=== PATIENT | female | born 1990 | race Asian ===

== ENCOUNTER 2018-04-01 12:51 | Emergency (ER) | payer OTHER ==
--- NOTE | 2018-04-01 13:49 | EDPHY ---
H & P Time Seen by Provider: 04/01/18 13:39 HPI/ROS: CHIEF COMPLAINT: Vaginal bleeding HISTORY OF PRESENT ILLNESS: Patient is a 28-year-old female G1 para 0 last menstrual period on 02/26/2018 presents emergency department vaginal bleeding. The patient took a home test a couple of weeks ago and it was positive. She has not yet seen a doctor. This morning she had a small amount of vaginal bleeding. This is only a few mL. She has had no abdominal cramping or pain. No fevers or chills. No dysuria or frequency. REVIEW OF SYSTEMS: 10 systems were reveiwed and are negative with the exception of the elements mentioned in the history of present illness. Past Medical/Surgical History: Negative Past surgical history: Negative Social history: The patient does not smoke. Smoking Status: Never smoked Physical Exam: Vitals noted GENERAL: Well-appearing, in no acute distress, alert. HEENT: Eyes normal to inspection. NECK: Normal, supple. RESPIRATORY: Clear to auscultation bilaterally, no rales, rhonchi or wheezing. CVS: Regular rate and rhythm, no rubs, murmurs, or gallops. ABDOMEN: Soft, nontender, nondistended, no organomegaly. BACK: Normal to inspection, no CVA tenderness. SKIN: Normal color, no rash, warm, dry. No pallor. EXTREMITIES: No pedal edema, no calf tenderness, no Homans sign or cords, no joint swelling. NEURO/PSYCH: Alert and oriented, normal mood and affect, normal motor sensory exam. Constitutional: Initial Vital Signs Temperature (C) 36.5 C 04/01/18 13:14 Heart Rate 88 04/01/18 13:14 Respiratory Rate 18 04/01/18 13:14 Blood Pressure 91/53 L 04/01/18 13:14 O2 Sat (%) 98 04/01/18 13:14 O2 Delivery Mode Room Air Allergies/Adverse Reactions: No Known Allergies Allergy (Unverified 04/01/18 13:56) Home Medications: Medication Instructions Recorded NK [No Known Home Meds] 04/01/18 Medical Decision Making ED Course/Re-evaluation: In the emergency department I discussed possible etiologies with the patient. I answered all her questions. IV was placed. Laboratory studies were obtained. An ultrasound was ordered. The ultrasound: Please refer the dictated report by Dr. Doan. There was what appears to be an IUP. No extra ureteral findings. Patient beta quant was 3700. Her Rh type positive. I discussed the case with Dr. Kemp. She will see the patient in clinic for further follow-up and treatment. I discussed the plan in the need for close follow-up with the patient. They will call 1st thing tomorrow morning. They are given warnings prior to leaving. Differential Diagnosis: My differential includes but is not limited to , ectopic , miscarriage, urinary tract infection, STD, PID - Data Points Laboratory Results: Laboratory Results 04/01/18 13:52 04/01/18 13:52 04/01/18 04/01/18 04/01/18 13:52 13:52 13:52 WBC 4.52 10^3/uL 10^3/uL (3.80-9.50) RBC 4.14 10^6/uL L 10^6/uL (4.18-5.33) Hgb 12.1 g/dL L g/dL (12.6-16.3) Hct 35.5 % L % (38.0-47.0) MCV 85.7 fL fL (81.5-99.8) MCH 29.2 pg pg (27.9-34.1) MCHC 34.1 g/dL g/dL (32.4-36.7) RDW 12.6 % % (11.5-15.2) Plt Count 216 10^3/uL 10^3/uL (150-400) MPV 9.7 fL fL (8.7-11.7) Neut % (Auto) 61.3 % % (39.3-74.2) Lymph % (Auto) 31.2 % % (15.0-45.0) Williamson % (Auto) 5.3 % % (4.5-13.0) Eos % (Auto) 1.1 % % (0.6-7.6) Baso % (Auto) 0.9 % % (0.3-1.7) Nucleat RBC Rel Count 0.0 % % (0.0-0.2) Absolute Neuts (auto) 2.77 10^3/uL 10^3/uL (1.70-6.50) Absolute Lymphs (auto) 1.41 10^3/uL 10^3/uL (1.00-3.00) Absolute Monos (auto) 0.24 10^3/uL L 10^3/uL (0.30-0.80) Absolute Eos (auto) 0.05 10^3/uL 10^3/uL (0.03-0.40) Absolute Basos (auto) 0.04 10^3/uL 10^3/uL (0.02-0.10) Absolute Nucleated RBC 0.00 10^3/uL 10^3/uL (0-0.01) Immature Gran % 0.2 % % (0.0-1.1) Immature Gran # 0.01 10^3/uL 10^3/uL (0.00-0.10) Sodium 136 mEq/L mEq/L (135-145) Potassium 4.5 mEq/L mEq/L (3.5-5.2) Chloride 106 mEq/L mEq/L (97-110) Carbon Dioxide 23 mEq/l mEq/l (22-31) Anion Gap 7 mEq/L mEq/L (6-14) BUN 13 mg/dL mg/dL (7-23) Creatinine 0.6 mg/dL mg/dL (0.6-1.0) Estimated GFR > 60 Glucose 92 mg/dL mg/dL (70-100) Calcium 9.0 mg/dL mg/dL (8.5-10.4) Beta HCG, Quant 3767.80 mIU/mL H mIU/mL (0.00-4.83) Patient ABO/Rh B POSITIVE Departure - Departure Disposition: Home, Routine, Self-Care Clinical Impression: Threatened Condition: Good Instructions: Threatened Miscarriage (ED) Additional Instructions: You need to call Dr. Kemp first thing tomorrow morning to make an appointment. Return with increasing bleeding, cramping, pain, fever or any other concerns. Referrals: Rosie Kemp DO [Doctor of Osteopathy] - 2-3 days, call for appt.
[2018-04-01 14:03] LABS: PLATELET COUNT 216 10^3/uL (150-400)
[2018-04-01 15:04] VITALS: BP 103/66
== END 2018-04-01 15:22 | disposition home or self-care (01) ==
DX: O20.0 Threatened abortion (principal); Z3A.01 Less than 8 weeks gestation of pregnancy